=== PATIENT | female | born 1975 ===

== ENCOUNTER → 2020-05-12 | Outpatient (REF) | payer MEDICARE, OTHER, MEDICAID ==
[2020-06-23 11:59] LABS: CREATININE, URINE 73.7 MG/DL; MALB URINE SIEMENS < 5.0 MG/L; MAU/CREAT RATIO 6.7 MCG/MG (0.0-30.0)
== END ==
LOC: M LAB REF 11:32
PROVIDERS: ATTEND Nurse Practitioner Family
DX: E11.65 Type 2 diabetes mellitus with hyperglycemia (principal)

== ENCOUNTER → 2022-05-10 | Outpatient (REF) | payer MEDICARE, OTHER, MEDICAID ==
[2022-05-10 18:04] LABS: MALB URINE SIEMENS 12.1 MG/L
== END ==
LOC: M LAB REF 16:51
PROVIDERS: ATTEND Nurse Practitioner Family
DX: E11.65 Type 2 diabetes mellitus with hyperglycemia (principal)